=== PATIENT | female | born 1955 | race Caucasian/White ===

== ENCOUNTER 2019-04-05 08:08 | Outpatient (CLI) | payer BC ==
--- NOTE | 2019-04-05 10:19 | CT ---
EXAM: CT ABDOMEN AND PELVIS HISTORY: Right-sided abdominal pain. Nausea. Loss of appetite. COMPARISON: None. Procedure: Multiple contiguous axial images were obtained and a CT of the abdomen and pelvis with IV contrast. C oronal reformats were performed. FINDINGS: Lower Chest: within normal limits. Vessels: Normal caliber aorta Heart: Normal heart size. No pericardial fluid Abdomen: Portal vein:Patent Gallbladder: No calcified gallstones. Normal caliber wall. Liver: within normal limits. Pancreas: within normal limits. Spleen: within normal limits. Adrenals: within normal limits. Kidneys: Symmetric enhancement kidneys. Bilaterally no obstructive uropathy. Hypodensity in the mid r ight renal cortex, measuring 0.7 cm is too small to characterize. Peritoneum: No ascites or free air, no fluid collection. Bowel: Gastric mucosa is unremarkable. Multiple normal caliber small bowel loops. Ileocecal junction is normal. Contrast and fecal material in a nondistended, nondilated colon. Appendix is not appreciated. Nevertheless, no inflammation at the cecal apex Mesentery and Retroperitoneum: No enlarged mesenteric or retroperitoneal lymph nodes. Abdominal Wall: within normal limits. Pelvis: Reproductive Organs: Uterus is surgically absent Pelvis: within normal limits. Bladder: within normal limits. Bones: There are no lytic or blastic lesions in the osseous structures. Grade 1 anterolisthesis of L4 upon L5. Severe disc disease at L2-L3 and L3-L4. IMPRESSION: No evidence of acute intraabdominal\pelvic abnormality.
[2019-04-05] MEDS ORDERED: ISOVUE-370 76%-LOCM 1 ML ONE (12:45)
== END 2019-04-05 08:09 | disposition home or self-care (01) ==
LOC: BICCT 08:08
PROVIDERS: ATTEND Physician Assistant Medical
DX: R10.9 Unspecified abdominal pain (principal); R11.0 Nausea; R63.0 Anorexia
CPT/HCPCS: 74177; Q9966

== ENCOUNTER 2020-03-25 07:44 | Day surgery (SDC) | payer BC ==
[2020-03-23 12:44] VITALS: BMI 40.7
--- NOTE | 2020-03-24 13:49 | HP ---
HISTORY OF PRESENT ILLNESS: Ms. Santiago is a pleasant 64-year-old woman presenting for evaluation of neck pain and tingling in the C6 nerve distribution on the left upper extremity, which subsequently causes numbness in the thumb and index finger. She reports experiencing some weakness in the hand when cooking or holding her grandchildren. She also reports shooting pains in the back of her skull that often wake her up at night. She had a posterior cervical spine surgery many years ago but is unsure what exactly was done. New MRI from [facility] reveals severe central canal stenosis from C5-C7 without signal change within the cord. PHYSICAL EXAMINATION: NEUROLOGIC: The patient is alert and oriented x3. Gait is normal. No ataxia. Reflexes are 3+ bilaterally at the biceps and does have a positive Camryn test on the left hand. PAST MEDICAL HISTORY: Significant for diabetes, headaches. PAST SURGICAL HISTORY: section x3, unspecified neck surgery, two left knee surgeries, appendectomy, hysterectomy, tonsillectomy. CURRENT MEDICATIONS: 1. Desvenlafaxine. 2. Dicyclomine. 3. Gabapentin. 4. Glipizide. 5. Hydrochlorothiazide. 6. Pioglitazone. 7. Pravastatin. 8. Ozempic. 9. Vitamin B. 10. Vitamin D. ALLERGIES: TO COMPAZINE, NEOMYCIN, THORAZINE, CODEINE, PENICILLIN. ASSESSMENT: Cervical radiculopathy. PLAN: Dr. Lay met with the patient, reviewed imaging, and advocated for C5-C7 ACDF. He explained the patient risks, benefits, and alternatives to the procedure. The patient expressed understanding and elected to move forward with surgery as planned. I do believe the patient is mentally competent and capable of making medical decisions for herself. We will move forward with surgery. Job ID: [id number]
[2020-03-25] MEDS ORDERED: Ketorolac Tromethamine 30 MG/ML VIAL ONE (09:15)
[2020-03-25] MEDS ORDERED: PROPOFOL 200 MG/20 ML VIAL ONE (09:15)
[2020-03-25] MEDS ORDERED: Ondansetron PF 4 MG/2 ML Vial ONE (09:15)
[2020-03-25] MEDS ORDERED: Lidocaine 1% PF 5 ML VIAL ONE (09:15)
[2020-03-25] MEDS ORDERED: Metoclopramide HCl 10 MG/2 ML VIAL ONE (09:15)
[2020-03-25] MEDS ORDERED: Rocuronium Bromide 10 MG/ML (10ML VIAL) ONE (09:15)
[2020-03-25] MEDS ORDERED: Dexamethasone 20 MG/5 ML VIAL ONE (09:15)
[2020-03-25] MEDS ORDERED: Clindamycin/D5W 900 mg/50 ml Premix Bag ONE (09:18)
[2020-03-25] MEDS ORDERED: Levofloxacin 500 mg/D5W 100 ml Premix Bag ONE (09:18)
[2020-03-25] MEDS ORDERED: Scopolamine 1.5 mg/72 hour Patch ONE (09:33)
[2020-03-25] MEDS ORDERED: Fentanyl 100 MCG/2 ML VIAL ONE ×3 (09:42→12:05)
[2020-03-25] MEDS ORDERED: Midazolam HCl 2 mg/2 ml Vial ONE (09:42)
[2020-03-25] MEDS ORDERED: SUGAMMADEX SODIUM 200 MG/2 ML VIAL ONE (11:14)
[2020-03-25] MEDS ORDERED: HYDROcodone/Acetaminophen 5/325 mg Tablet ONE (13:48)
--- NOTE | 2020-03-25 16:59 | OP ---
DATE OF PROCEDURE: 03/25/2020 ICE SCULPTOR: Preston Wyatt PA-C INDICATION: Pain. DIAGNOSIS: Cervical radiculopathy. PROCEDURE PERFORMED: Anterior cervical diskectomy and fusion C5 through C7. ANESTHESIA: General. DESCRIPTION OF PROCEDURE: The patient was brought into the operating room and placed under general anesthesia. She was placed on table in a supine position. A transverse incision was planned over the lateral aspect of the neck on the right. After prepping and draping and after an appropriate preoperative pause, the incision was created. The underlying platysma muscle was identified and incised. A blunt tissue plane anterior to the sternocleidomastoid muscle was used to gain access to the prevertebral space. Self-retaining retractors were placed in the wound for optimal exposure. After confirming the appropriate level with C-arm fluoroscopy, an annulotomy was performed in the C6-C7 disk space, where all disk material as well as anterior and posterior osteophytes were removed. After completing the decompression, a 6 mm lordotic PEEK cage packed with allograft and autograft material was placed in the interbody space. We then redirected our attention level above at C5-C6 where again an annulotomy was performed. All disk material as well as anterior and posterior osteophytes were removed. After completing the decompression, a 6-mm lordotic PEEK cage packed with allograft and autograft material were placed in the interbody space. An anterior cervical plate was then fashioned in front of spine and secured with a total of 6 screws. Midline and lateral structures were inspected and found to be free from significant trauma. The wound was irrigated. Hemostasis was maintained throughout. The wound was then closed in anatomic layers, and a pressure dressing was applied. There were no known procedural complications. Job ID: [id number]
== END 2020-03-25 14:20 | disposition home or self-care (01) ==
LOC: SDC 07:44
PROVIDERS: ATTEND Neurological Surgery
PROC: 0RG2070 Fusion of 2 or more Cervical Vertebral Joints with Autologous Tissue Substitute, Anterior Approach, Anterior Column, Open Approach (ICD-10-PCS; principal; 2020-03-25)
PROC: 0RT30ZZ Resection of Cervical Vertebral Disc, Open Approach (ICD-10-PCS; principal; 2020-03-25)
PROC: 0RG20A0 Fusion of 2 or more Cervical Vertebral Joints with Interbody Fusion Device, Anterior Approach, Anterior Column, Open Approach (ICD-10-PCS; principal; 2020-03-25)
DX: M54.12 Radiculopathy, cervical region (principal); E11.9 Type 2 diabetes mellitus without complications; Z79.84 Long term (current) use of oral hypoglycemic drugs; Z79.899 Other long term (current) drug therapy; Z88.0 Allergy status to penicillin; Z88.8 Allergy status to other drugs, medicaments and biological substances; Z88.5 Allergy status to narcotic agent
CPT/HCPCS: 76000; C1713; C1776; J1100; J1885; J1956; J2250; J2405; J2704; J2765; J3010; J3490

== ENCOUNTER 2020-05-08 11:03 | Outpatient (CLI) | payer BC, OTHER ==
[2020-05-09 12:06] LABS: SARS-CoV-2 MS2 Positive; SARS-CoV-2 N Gene Negative; SARS-CoV-2 S Gene Negative; SARS-CoV-2 by NAA Not Detected (NotDetected); SARS-CoV-2 orf1ab Negative
== END 2020-05-08 11:04 | disposition home or self-care (01) ==
LOC: LABBT 11:03
PROVIDERS: ATTEND Student in an Organized Health Care Education/Training Program
DX: Z20.828 Contact with and (suspected) exposure to other viral communicable diseases (principal)
CPT/HCPCS: 87635; U0003

== ENCOUNTER 2020-05-11 10:07 | Outpatient (CLI) | payer BC ==
--- NOTE | 2020-05-12 10:00 | RAD ---
MODIFIED BARIUM SWALLOW IN THE PRESENCE OF SPEECH PATHOLOGIST: EXPOSURE: 18 seconds, 0.4 mg/m2. HISTORY: Dysphagia, oral pharyngeal phase, recent cervical spine surgery, feeding difficulty, vocal cord paral ysis. FINDINGS: In the presence of the speech pathologist, the patient was administered thin liquid, puree, nectar th ick, mechanical soft consistencies and a barium tablet. There does appear to be penetration with liquid consistency. There is a prominent cricopharyngeus at the C4-C5 level. Cervical fusion at C5-C6 is noted. Please refer to speech pathologist report for further detail. IMPRESSION: As above. Transcribed Date/Time: 05/12/2020 10:38 AM
== END 2020-05-11 10:08 | disposition home or self-care (01) ==
PROVIDERS: ATTEND Student in an Organized Health Care Education/Training Program
DX: R13.12 Dysphagia, oropharyngeal phase (principal); R63.3 Feeding difficulties; Z98.890 Other specified postprocedural states
CPT/HCPCS: 74230

== ENCOUNTER 2020-05-14 11:42 | Outpatient (CLI) | payer BC, OTHER ==
[2020-05-14 14:15] LABS: Hemoglobin 14.6 g/dL (12.0-16.0)
[2020-05-14 15:16] LABS: Anion Gap 14 mmol/L (10-20); BUN (Urea Nitrogen) 11 mg/dL (9.8-20.1); Calc. Creatinine Clearance 0 mL/min (70-130); Calcium 9.6 mg/dL (7.8-10.44); Carbon Dioxide 29 mmol/L (23-31); Chloride 101 mmol/L (98-107); Estimated GFR-MDRD 70; Glucose 100 mg/dL (80-115); Potassium 4.5 mmol/L (3.5-5.1); Sodium 139 mmol/L (136-145)
[2020-05-15 11:00] LABS: SARS-CoV-2 MS2 Positive; SARS-CoV-2 N Gene Negative; SARS-CoV-2 S Gene Negative; SARS-CoV-2 by NAA Not Detected (NotDetected); SARS-CoV-2 orf1ab Negative
== END 2020-05-14 11:43 | disposition home or self-care (01) ==
LOC: LABBT 11:42
PROVIDERS: ATTEND Student in an Organized Health Care Education/Training Program
DX: Z01.818 Encounter for other preprocedural examination (principal); J38.00 Paralysis of vocal cords and larynx, unspecified; Z20.828 Contact with and (suspected) exposure to other viral communicable diseases
CPT/HCPCS: 80048; 85014; 85018; 87635; U0003

== ENCOUNTER 2020-05-19 08:13 | Day surgery (SDC) | payer BC ==
[2020-05-18 09:42] VITALS: BMI 40.7
[2020-05-19] MEDS ORDERED: EPINEPHrine 1 MG/ML AMP ONE (11:22)
[2020-05-19] MEDS ORDERED: Fentanyl 100 MCG/2 ML VIAL ONE (11:30)
[2020-05-19] MEDS ORDERED: Midazolam HCl 2 mg/2 ml Vial ONE (11:30)
[2020-05-19] MEDS ORDERED: Lidocaine 1% PF 5 ML VIAL ONE (11:32)
[2020-05-19] MEDS ORDERED: Rocuronium Bromide 10 MG/ML (10ML VIAL) ONE (11:32)
[2020-05-19] MEDS ORDERED: Dexamethasone 20 MG/5 ML VIAL ONE (11:32)
[2020-05-19] MEDS ORDERED: Glycopyrrolate 0.2 MG/ML 5 ML SYRINGE ONE (11:32)
[2020-05-19] MEDS ORDERED: Ondansetron PF 4 MG/2 ML Vial ONE (11:32)
[2020-05-19] MEDS ORDERED: PROPOFOL 200 MG/20 ML VIAL ONE (11:32)
--- NOTE | 2020-05-20 13:48 | OP ---
DATE OF PROCEDURE: 05/19/2020 PREOPERATIVE DIAGNOSES: Right true vocal fold paralysis, dysphasia, hoarseness, and aspiration. POSTOPERATIVE DIAGNOSES: Right true vocal fold paralysis, dysphasia, hoarseness, and aspiration. PROCEDURES: Direct suspension laryngoscopy with telescope and injection of right true vocal fold. PERMIT: Procedures, benefits, risks, including those of bleeding, infection, injury from anesthesia, allergic reactions, and scarring in the airway or damage to the airway necessitating revision or repair and alternatives were reviewed with the patient and family, who expressed understanding of the information. The consent form was signed and witnessed and a paper copy of the consent form is available for review in the paper chart. INDICATION: This is a 64-year-old female patient presenting to clinic with new onset hoarseness and dysphasia and aspiration to thin liquids after right neck anterior cervical diskectomy and fusion. The patient was found on flexible laryngoscopy to have a paralyzed right true vocal fold and on modified barium swallow study, was found to have a small amount of aspiration. Given the patient's risks, the patient was brought to the operating room now for operative intervention. VAMPER: None. FINDINGS: Normal laryngeal anatomy with right paralyzed true vocal fold. DESCRIPTION OF OPERATION: The patient was taken back to the operative suite and a time-out was performed after the patient was identified in the preoperative holding area. General endotracheal anesthesia was achieved with a microlaryngeal tube and the patient was turned 90 degrees to the left. Next, a Dedo laryngoscope was used to examine the glottis. Upon good visualization of the glottis, the laryngoscope was suspended. A 0-degree endoscope was used for visualization. Attention was then turned to the right true vocal fold, which was then injected with approximately 1 cc of Prolaryn gel in order to maintain good volume and medialization of the right true vocal fold. Once this was achieved, a small amount of bleeding from the injection site was suctioned and when good placement of the injected material was found to be achieved, the telescope was removed and the Dedo laryngoscope as well as the dental guard was removed from the airway and the patient was turned back to Anesthesia for emergence with no complications. Job ID: [id number]
== END 2020-05-19 14:45 | disposition home or self-care (01) ==
LOC: SDC 08:13
PROVIDERS: ATTEND Student in an Organized Health Care Education/Training Program
PROC: 3E0F8GC Introduction of Other Therapeutic Substance into Respiratory Tract, Via Natural or Artificial Opening Endoscopic (ICD-10-PCS; principal; 2020-05-19)
DX: J38.01 Paralysis of vocal cords and larynx, unilateral (principal); E11.9 Type 2 diabetes mellitus without complications; Z79.84 Long term (current) use of oral hypoglycemic drugs; Z79.899 Other long term (current) drug therapy; Z88.0 Allergy status to penicillin; Z88.5 Allergy status to narcotic agent; Z88.8 Allergy status to other drugs, medicaments and biological substances
CPT/HCPCS: 93005; 93010; J0171; J1100; J2250; J2405; J2704; J3010

== ENCOUNTER 2020-08-20 06:57 | Outpatient (CLI) | payer BC ==
[2020-08-20 09:14] LABS: Hemoglobin 13.6 g/dL (12.0-16.0)
[2020-08-20 09:26] LABS: Anion Gap 14 mmol/L (10-20); BUN (Urea Nitrogen) 16 mg/dL (9.8-20.1); Calc. Creatinine Clearance 0 mL/min (70-130); Calcium 9.2 mg/dL (7.8-10.44); Carbon Dioxide 30 mmol/L (23-31); Chloride 100 mmol/L (98-107); Glucose 222 mg/dL (80-115); Potassium 4.3 mmol/L (3.5-5.1); Sodium 140 mmol/L (136-145)
[2020-08-20 14:25] LABS: SARS-CoV-2 PCR by NAA Not Detected (NotDetected)
--- NOTE | 2020-08-20 17:07 | EKG ---
Test Reason : Blood Pressure : / mmHG Vent. Rate : 066 BPM Atrial Rate : 066 BPM P-R Int : 152 ms QRS Dur : 074 ms QT Int : 416 ms P-R-T Axes : 062 056 045 degrees QTc Int : 436 ms Normal sinus rhythm Normal ECG When compared with ECG of 19-MAY-2020 09:16, No significant change was found Confirmed by DR. Macy MUNOZ ([id number]) on 08/20/2020 5:07:38 PM Referred By: GERI Confirmed By:DR. Macy MUNOZ
== END 2020-08-20 06:58 | disposition home or self-care (01) ==
LOC: LABBT 06:57
PROVIDERS: ATTEND Student in an Organized Health Care Education/Training Program
DX: Z01.818 Encounter for other preprocedural examination (principal); Z20.822 Contact with and (suspected) exposure to COVID-19; J38.00 Paralysis of vocal cords and larynx, unspecified; R49.0 Dysphonia; R13.10 Dysphagia, unspecified
CPT/HCPCS: 80048; 85014; 85018; 87635; 93005; 93010; U0003; U0005

== ENCOUNTER 2020-08-25 06:05 | Day surgery (SDC) | payer BC ==
[2020-08-21 10:16] VITALS: BMI 42.0
[2020-08-25] MEDS ORDERED: EPINEPHrine 1 MG/ML AMP ONE (08:22)
[2020-08-25] MEDS ORDERED: Fentanyl 100 MCG/2 ML VIAL ONE ×2 (08:28→10:03)
[2020-08-25] MEDS ORDERED: Midazolam HCl 2 mg/2 ml Vial ONE (08:28)
[2020-08-25] MEDS ORDERED: SUGAMMADEX SODIUM 500 MG/5 ML VIAL ONE (08:28)
[2020-08-25] MEDS ORDERED: Clindamycin/D5W 900 mg/50 ml Premix Bag ONE (08:49)
[2020-08-25] MEDS ORDERED: Rocuronium Bromide 10 MG/ML (10ML VIAL) ONE (10:16)
[2020-08-25] MEDS ORDERED: Dexamethasone 20 MG/5 ML VIAL ONE (10:16)
[2020-08-25] MEDS ORDERED: Ondansetron PF 4 MG/2 ML Vial ONE (10:16)
[2020-08-25] MEDS ORDERED: PROPOFOL 200 MG/20 ML VIAL ONE (10:16)
--- NOTE | 2020-08-26 12:37 | OP ---
DATE OF PROCEDURE: 08/25/2020 PREOPERATIVE DIAGNOSES: Right true vocal fold paralysis, dysphagia, hoarseness, and aspiration. POSTOPERATIVE DIAGNOSES: Right true vocal fold paralysis, dysphagia, hoarseness, and aspiration. PROCEDURES PERFORMED: Direct suspension laryngoscopy with telescope and injection of right true vocal fold. PERMIT: Procedure benefits, risks including those of bleeding, infection, injury from anesthesia, allergic reactions, and scarring in the airway or damage to the airway necessitating revision or repair and alternatives were reviewed with the patient and family, who expressed understanding of the information. A consent form was signed, witnessed and a paper copy of the consent form is available for review in the paper chart. INDICATIONS: This is a 64-year-old female patient, who presented to clinic with recurrent hoarseness and dysphagia, who first presented after anterior cervical diskectomy and fusion. The patient had a true vocal fold injection previously, roughly 2-1/2 months ago and had significant benefit. However, at this point, she is having recurrent symptoms and would like to have a longer-term injection laryngoplasty. Given the patient's risks and difficulty voicing, the patient was brought to the operating room for operative intervention. SUBWAY CAR REPAIRER: None. FINDINGS: Normal laryngeal anatomy with paralyzed right true vocal fold. DESCRIPTION OF PROCEDURE: The patient was taken back to the operative suite and time-out was performed after the patient was identified in the preoperative holding area. General endotracheal anesthesia was administered with a microlaryngeal tube. The patient was turned 90 degrees to the left. Next, Jalen laryngoscope was used to examine the oropharynx, oral cavity, and glottis. After good visualization of the entire glottis was found, the laryngoscope was suspended and a 0-degree endoscope was used for visualization. Attention was turned to the right true vocal fold and was injected with approximately 1.2 mL Prolaryn plus gel in order to maintain good volume and medialization of the true vocal fold. Once this was achieved, the patient's subglottis, true vocal fold, and airway was evaluated and any secretions were suctioned. The laryngoscope was taken out of suspension and removed and the patient was turned over to Anesthesia for emergence. The patient was observed after extubation by the surgeon and there was no stridor or difficulty breathing. The patient was taken to the PACU and was allowed to recover. Job ID: [id number]
== END 2020-08-25 12:20 | disposition home or self-care (01) ==
LOC: SDC 06:05
PROVIDERS: ATTEND Student in an Organized Health Care Education/Training Program
PROC: 3E0F8GC Introduction of Other Therapeutic Substance into Respiratory Tract, Via Natural or Artificial Opening Endoscopic (ICD-10-PCS; principal; 2020-08-25)
DX: J38.00 Paralysis of vocal cords and larynx, unspecified (principal); E11.9 Type 2 diabetes mellitus without complications; Z79.84 Long term (current) use of oral hypoglycemic drugs; Z79.899 Other long term (current) drug therapy; Z88.0 Allergy status to penicillin; Z88.5 Allergy status to narcotic agent
CPT/HCPCS: J0171; J1100; J2250; J2405; J2704; J3010; J3490